=== PATIENT | male | born 1980 | race Caucasian/White ===

== ENCOUNTER 2017-08-22 11:18 | Emergency (ER) | payer OTHER ==
[2017-08-22 11:34] VITALS: BP 135/75; PULSE 69; TEMP 98.3; BMI 32.3
--- NOTE | 2017-08-22 12:25 | PDOC ---
Attending Attestation - HPI HPI: The patient is a 36 year old Slovak speaking male, with no significant PMHx, who presents with a penile problem. Patient states that he was taking a shower yesterday and decided to put toothpaste on his genitals while erect. He states soon afterwards his penis began to hurt went flaccid and became more inverted than it ever has been. He immediately went to the ER at [facility] but was told there is nothing wrong with his penis. He denies any pain currently but is worried because he states he is unable to maintain an erection. He admits to using a testosterone performance enhancer 3 weeks ago. Denies recent fevers, STDs, STIs. 08/22/17 13:18 08/22/17 13:25 <Migdalia Vazquez - Last Filed: 08/22/17 13:25> - Physicial Exam PE: Agree with resident exam. penile exam shows a normal uncircumsized penis with no signs of trauma. Normal testicular exam. 08/22/17 14:24 - Medical Decision Making 08/22/17 14:25 Pt presents to the ED complaining of inability to urinate or get and erection after putting tooth paste on his penis last night. Normal exam. Patient was able to urinate and have an erection in the ED. Will discharge home. <Marcella Herrera - Last Filed: 08/22/17 14:26>
--- NOTE | 2017-08-22 12:39 | PDOC ---
History of Present Illness - General Chief Complaint: Pain Stated Complaint: WEAKNESS Time Seen by Provider: 08/22/17 12:00 History Source: Patient, Family, Sibling - History of Present Illness Initial Comments: 08/22/17 12:32 36 yo M w no pmh is here bc last night at 10 pm he put toothpaste all around his pubic region and has not been able to attain an erection since then. He has never experienced this in the past. He says he is not in any pain. He went to [facility] this morning at 2 AM and says he was there for 8 hours but then they sent him home saying he would be okay and did not do anything. He denies taking any substances in the past 3 weeks, but 3 weeks ago he said he used a testosterone sexual performance enhancer. He denies using this enhancer recently. He denies recent fevers or infections. 08/22/17 12:41 08/22/17 13:34 Past History - Past Medical History Allergies/Adverse Reactions: Allergies Allergy/AdvReac Type Severity Reaction Status Date / Time No Known Allergies Allergy Verified 08/22/17 11:34 Home Medications: Ambulatory Orders NK [No Known Home Medication] 08/22/17 COPD: No - Suicide/Smoking/Psychosocial Hx Smoking History: Never smoked Review of Systems - Review of Systems Comments:: 08/22/17 12:51 GENITOURINARY: Positive: Mild dysuria and suprapubic tenderness Absent: frequency, urgency, hesitancy, hematuria, flank pain, genital pain CONSTITUTIONAL: Absent: fever, chills, diaphoresis, generalized weakness, malaise, loss of appetite HEENT: Absent: rhinorrhea, nasal congestion, throat pain, throat swelling, difficulty swallowing, mouth swelling, ear pain, eye pain, visual Changes CARDIOVASCULAR: Absent: chest pain, syncope, palpitations, irregular heart rate, lightheadedness , peripheral edema RESPIRATORY: Absent: cough, shortness of breath, dyspnea with exertion, orthopnea, wheezing, stridor, hemoptysis GASTROINTESTINAL: Absent: abdominal pain, abdominal distension, nausea, vomiting, diarrhea, constipation, melena, hematochezia MUSCULOSKELETAL: Absent: myalgia, arthralgia, joint swelling SKIN: Absent: rash, itching, pallor HEMATOLOGIC/IMMUNOLOGIC: Absent: easy bleeding, easy bruising, lymphadenopathy, frequent infections ENDOCRINE: Absent: unexplained weight gain, unexplained weight loss, heat intolerance, cold intolerance NEUROLOGIC: Absent: headache, focal weakness or paresthesias, dizziness, unsteady gait, seizure, mental status changes, bladder or bowel incontinence PSYCHIATRIC: Absent: anxiety, depression, suicidal or homicidal ideation, hallucinations. 08/22/17 13:35 *Physical Exam - Vital Signs Last Vital Signs Temp Pulse Resp BP Pulse Ox 98.3 F 69 18 135/75 100 08/22/17 11:28 08/22/17 11:28 08/22/17 11:28 08/22/17 11:28 08/22/17 11:28 - Physical Exam Comments: 08/22/17 12:52 Genitourinary: The penis is not erythematous or swollen. There is no phimosis or paraphimosis. No testicular pain, and no evidence of a hernia. There are no rashes in the genital region and nothing that resembles an STD. ABDOMINAL: There is mild suprapubic TTP. His abdomen is Soft with no rebound or guarding. No organomegaly. Normoactive bowel sounds. GENERAL: Well developed, well nourished. Awake and alert. No acute distress. HEENT: Normocephalic, atraumatic. PERRLA, EOMI. No conjunctival pallor. Sclera are non- icteric. Moist mucous membranes. Oropharynx is clear. NECK: Supple. Full ROM. No JVD. Carotid pulses 2+ and symmetric, without bruits. No thyromegaly. No lymphadenopathy. CARDIOVASCULAR: Regular rate and rhythm. No murmurs, rubs, or gallops. Distal pulses are 2+ and symmetric. PULMONARY: No evidence of respiratory distress. Lungs clear to auscultation bilaterally. No wheezing, rales or rhonchi. MUSCULOSKELETAL Normal range of motion at all joints. No bony deformities or tenderness. No CVA tenderness. EXTREMITIES: No cyanosis. No clubbing. No edema. No calf tenderness. SKIN: Warm and dry. Normal capillary refill. No rashes. No jaundice. NEUROLOGICAL: Alert, awake, appropriate. Cranial nerves 2-12 intact. No deficits to light touch and temperature in face, upper extremities and lower extremities. No motor deficits in the in face, upper extremities and lower extremities. Normoreflexic in the upper and lower extremities. Normal speech. Toes are down-going bilaterally. Gait is normal without ataxia. PSYCHIATRIC: Cooperative. Good eye contact. Appropriate mood and affect. 08/22/17 13:36 Medical Decision Making - Medical Decision Making 08/22/17 13:37 36 yo M w/ no pmh here bc he has not been able to attain an erection since applying toothpaste to his penis last night at 10 pm. He has no pain, and only minor discomfort that he describes as itchiness. There is no evidence of a medical problem. He has no testicular pain, no signs of a hernia, no external rashes, no swelling, no erythema, no signs of phimosis or paraphimosis. Plan: we will test for a uti with a UA bc he has mild dysuria and suprapubic TTP. Additionally, we will give him a urologist to contact on Wednesday if his flaccid state persists. Re-assessment: Patient now has an erection here in the ED, feels better, and is ready to go home. 08/22/17 14:21 *DC/Admit/Observation/Transfer Diagnosis at time of Disposition: Erectile dysfunction - Discharge Dispostion Disposition: HOME Condition at time of disposition: Improved Decision to Admit order: No - Referrals Referrals: ON STAFF,NOT [Primary Care Provider] - Alex Moura MD [Staff Physician] - - Patient Instructions Printed Discharge Instructions: How to Care for an Uncircumcised Penis-Child Additional Instructions: Please do not apply toothpaste to your genital region. If your condition does not go away by Wednesday call up the Urologist, male specific doctor, we are giving you the number for. If you start developing extreme pain, a fever, or any concerning symptoms come back to the emergency room. Print Language: ENG - Post Discharge Activity
[2017-08-22 13:50] LABS: URINE APPEARANCE CLEAR; URINE BILIRUBIN NEGATIVE (<2.0 mg/dL); URINE COLOR LTYELLOW; URINE GLUCOSE (UA) NEGATIVE (NEGATIVE); URINE KETONE NEGATIVE (NEGATIVE); URINE LEUK ESTERASE NEGATIVE (NEGATIVE); URINE NITRITE NEGATIVE (NEGATIVE); URINE PROTEIN NEGATIVE (NEGATIVE); URINE UROBILINOGEN NEGATIVE mg/dL (0.2-1.0)
== END 2017-08-22 14:25 | disposition home or self-care (01) ==
LOC: JER 11:18
DX: N52.9 Male erectile dysfunction, unspecified (principal)
CPT/HCPCS: 36415; 81003; 87491; 87591; 99282-25